=== PATIENT | male | born 1995 | race Caucasian/White ===

== ENCOUNTER 2017-08-12 14:34 | Emergency (ER) | payer OTHER ==
--- NOTE | 2017-08-12 16:20 | CPEKG ---
Heart Rate: 60 RR Interval: 1000 P-R Interval: 124 QRSD Interval: 86 QT Interval: 404 QTC Interval: 404 P [place]: 63 QRS [place]: 88 T Wave [place]: 56 EKG Severity - NORMAL ECG - EKG Impression: SINUS RHYTHM Electronically Signed By: Dalia Espinoza 13-Aug-2017 00:02:49
[2017-08-12 16:40] LABS: % IMMATURE GRANULYOCYTES 0.7 % (0.0-1.1); ABSOLUTE IMMATURE GRANULOCYTES 0.05 10^3/uL (0.00-0.10); ADD DIFF? NO; ADD MORPH? NO; ADD SCAN? NO; ATYPICAL LYMPHOCYTE FLAG 10 (0-99); FRAGMENT RBC FLAG 0 (0-99); HEMOGLOBIN 16.7 g/dL (13.7-17.5); LEFT SHIFT FLG 0 (0-99); LIPEMIA HEMOLYSIS FLAG 90 (0-99); MEAN CELL HEMOGLOBIN 33.8 pg (27.9-34.1); MEAN CELL HEMOGLOBIN CONCENTR. 37.1 g/dL (32.4-36.7); MEAN CELL VOLUME 91.1 fL (81.5-99.8); MEAN PLATELET VOLUME 9.4 fL (8.7-11.7); PLATELET CLUMPS FLAG 0 (0-99); PLATELET COUNT 285 10^3/uL (150-400); RED BLOOD CELL COUNT 4.94 10^6/uL (4.40-6.38); RED CELL DISTRIBUTION WIDTH 12.1 % (11.5-15.2)
[2017-08-12 16:51] LABS: ANION GAP 15 mEq/L (8-16); CALCIUM 10.2 mg/dL (8.5-10.4); CARBON DIOXIDE 19 mEq/l (22-31); CHLORIDE 104 mEq/L (97-110); CREATININE 0.8 mg/dL (0.7-1.3); GLOMERULAR FILTRATION RATE > 60; GLUCOSE 84 mg/dL (70-100); POTASSIUM 4.1 mEq/L (3.5-5.2); SODIUM 138 mEq/L (134-144)
[2017-08-12 17:03] LABS: TROPONIN I < 0.012 ng/mL (0.000-0.034)
--- NOTE | 2017-08-12 17:11 | EDPHY ---
H & P Stated Complaint: CP, short of breath, prev anxious. - Personal History Current Tetanus/Diphtheria Vaccine: Unsure Current Tetanus Diphtheria and Acellular Pertussis (TDAP): Unsure - Medical/Surgical History Hx Asthma: No Hx Chronic Respiratory Disease: No Hx Diabetes: No Hx Cardiac Disease: No Hx Renal Disease: No Hx Cirrhosis: No Hx Alcoholism: No Hx HIV/AIDS: No Hx Splenectomy or Spleen Trauma: No Other PMH: Anxiety attacks, marijuana user. ETOH user. - Social History Smoking Status: Light smoker Time Seen by Provider: 08/12/17 16:04 HPI/ROS: Chief complaint: Chest pain History of present illness: This is a 21-year-old male who presents to the emergency department for evaluation of chest pain. Patient reports the onset of symptoms over the last few days. He describes pain primarily on the left side of his chest. However, he does move through different parts of the left side of the chest. States the pain is sometimes sharp, sometimes sore. He occasionally has trouble breathing with it. He denies precipitating factors. He denies any alleviating or aggravating factors. He denies other associated signs or symptoms including no fevers, no cold symptoms, no pain or swelling in the legs. Review of systems: A 10 point review of systems was obtained and other than described above was negative (Michel He) - Physical Exam Exam: General Appearance: Alert, nontoxic. Eyes: Pupils equal and round no pallor or injection. ENT, Mouth: Mucous membranes moist. Respiratory: There are no retractions, lungs are clear to auscultation. Cardiovascular: Regular rate and rhythm. Gastrointestinal: Abdomen is soft and non tender, no masses, bowel sounds normal. Neurological: Alert and oriented x4. Strength and sensation intact and symmetrical. Skin: Warm and dry, no rashes. Musculoskeletal: Neck is supple non tender. Extremities are symmetrical, full range of motion. No erythema, edema or asymmetry of the lower extremities. No evidence of DVT. Psychiatric: Patient is oriented X 3, there is no agitation. (Michel He) Constitutional: Initial Vital Signs Temperature (C) 37.1 C 08/12/17 14:49 Heart Rate 72 08/12/17 14:49 Respiratory Rate 18 08/12/17 14:49 Blood Pressure 135/72 H 08/12/17 14:49 O2 Sat (%) 98 08/12/17 14:49 O2 Delivery Mode Room Air Allergies/Adverse Reactions: Penicillins Allergy (Intermediate, Verified 08/12/17 14:54) Rash Sulfa (Sulfonamide Antibiotics) Allergy (Intermediate, Verified 08/12/17 14:54) Rash Home Medications: Medication Instructions Recorded NK [No Known Home Meds] 10/08/15 Medical Decision Making - Diagnostics Imaging: I viewed and interpreted images myself - Diagnostics Imaging Results: Imaging Impressions Chest X-Ray 08/12/17 15:01 Impression: Normal chest. ED Course/Re-evaluation: Patient discussed with my secondary supervising physician Dr. Dalia Espinoza. Patient presents to the emergency department for chest pain. He is nontoxic. Afebrile and vital signs are stable. Blood studies, EKG and x-rays unremarkable. My suspicion for serious underlying pathology is low. Patient is discharged home. Home care is discussed. He is asked to follow up with primary care doctor for recheck. Return precautions are given. (Michel He) The patient was evaluated and managed by the physician assistant to the dean. I have reviewed this chart and I agree with the findings and plan of care as documented , as indicated by my signature. I am the secondary supervising physician. ( Dalia Espinoza) Differential Diagnosis: Included but not limited to anxiety, musculoskeletal, reflux, peptic ulcer disease, pneumothorax, pulmonary infections, pulmonary embolism, cardiac dysrhythmia, ACS (Michel eH) - Data Points Laboratory Results: Laboratory Results 08/12/17 16:30 08/12/17 16:30 08/12/17 08/12/17 08/12/17 16:30 16:30 16:30 WBC 7.48 10^3/uL 10^3/uL (3.80-9.50) RBC 4.94 10^6/uL 10^6/uL (4.40-6.38) Hgb 16.7 g/dL g/dL (13.7-17.5) Hct 45.0 % % (40.0-51.0) MCV 91.1 fL fL (81.5-99.8) MCH 33.8 pg pg (27.9-34.1) MCHC 37.1 g/dL H g/dL (32.4-36.7) RDW 12.1 % % (11.5-15.2) Plt Count 285 10^3/uL 10^3/uL (150-400) MPV 9.4 fL fL (8.7-11.7) Neut % (Auto) 78.9 % H % (39.3-74.2) Lymph % (Auto) 13.0 % L % (15.0-45.0) [place] % (Auto) 6.4 % % (4.5-13.0) Eos % (Auto) 0.3 % L % (0.6-7.6) Baso % (Auto) 0.7 % % (0.3-1.7) Nucleat RBC Rel Count 0.0 % % (0.0-0.2) Absolute Neuts (auto) 5.91 10^3/uL 10^3/uL (1.70-6.50) Absolute Lymphs (auto) 0.97 10^3/uL L 10^3/uL (1.00-3.00) Absolute Monos (auto) 0.48 10^3/uL 10^3/uL (0.30-0.80) Absolute Eos (auto) 0.02 10^3/uL L 10^3/uL (0.03-0.40) Absolute Basos (auto) 0.05 10^3/uL 10^3/uL (0.02-0.10) Absolute Nucleated RBC 0.00 10^3/uL 10^3/uL (0-0.01) Immature Gran % 0.7 % % (0.0-1.1) Immature Gran # 0.05 10^3/uL 10^3/uL (0.00-0.10) D-Dimer < 0.27 ug/mLFEU ug/mLFEU (0.00-0.50) Sodium 138 mEq/L mEq/L (134-144) Potassium 4.1 mEq/L mEq/L (3.5-5.2) Chloride 104 mEq/L mEq/L (97-110) Carbon Dioxide 19 mEq/l L mEq/l (22-31) Anion Gap 15 mEq/L mEq/L (8-16) BUN 12 mg/dL mg/dL (7-23) Creatinine 0.8 mg/dL mg/dL (0.7-1.3) Estimated GFR > 60 Glucose 84 mg/dL mg/dL (70-100) Calcium 10.2 mg/dL mg/dL (8.5-10.4) Troponin I < 0.012 ng/mL ng/mL (0.000-0.034) Departure - Departure Disposition: Home, Routine, Self-Care Clinical Impression: Chest pain Condition: Good Instructions: Chest Pain (ED) Additional Instructions: Follow-up with a primary care doctor for recheck If symptoms worsen or new symptoms develop return to the emergency room for recheck Referrals: [facility] Hotline [Outside] - As per Instructions [facility] 24 Hours [Outside] - As per Instructions [facility],. [Clinic] - As per Instructions NONE *PRIMARY CARE P,. [Primary Care Provider] - As per Instructions [facility],. [Clinic] - As per Instructions
[2017-08-12 17:58] VITALS: BP 128/72; PULSE 70; RESP 16; TEMP 98.6; O2SAT 96
== END 2017-08-12 17:57 | disposition home or self-care (01) ==
DX: R07.9 Chest pain, unspecified (principal); F17.200 Nicotine dependence, unspecified, uncomplicated